=== PATIENT | female | born 1995 | race Caucasian/White ===

== ENCOUNTER 2016-12-04 00:08 | Emergency (ER) | payer MEDICAID ==
[2016-12-04 01:01] LABS: BASOPHIL % 0.5 % (0-2); PLATELET COUNT 376 x10^3mcL (130-400); RED CELL DISTRIBUTION WIDTH 13.9 % (11.5-14.5)
[2016-12-04 01:19] LABS: CARBON DIOXIDE 27.2 mmol/L (21-32); CHLORIDE SERUM 101 mmol/L (98-107); CREATININE SERUM 0.5 mg/dL (0.6-1.0); GFR1 > 60 mL/min; GLUCOSE SERUM 94 mg/dL (74-106); POTASSIUM SERUM 3.7 mmol/L (3.5-5.1); SODIUM SERUM 139 mmol/L (136-145)
[2016-12-04 01:24] LABS: ALBUMIN 3.8 g/dL (3.4-5.0); ALKALINE PHOSPHATASE 80 U/L (46-116); ALT/SGPT 35 U/L (14-59); AMYLASE 69 U/L (25-115); AST/SGOT 29 U/L (15-37); BILIRUBIN TOTAL 0.5 mg/dL (0.20-1.00); LIPASE 146 IU/L (73-393); TOTAL PROTEIN, SERUM 7.5 g/dL (6.4-8.2)
[2016-12-04 02:40] VITALS: BP 130/90
== END 2016-12-04 02:40 | disposition home or self-care (01) ==
LOC: ED 00:08
PROVIDERS: Emergency Medicine
DX: R10.13 Epigastric pain (principal); R11.0 Nausea
CPT/HCPCS: 36415; 83880; Q0092; Q0162

== ENCOUNTER 2016-12-29 01:03 | Emergency (ER) | payer OTHER, MEDICAID ==
[2016-12-29 04:23] VITALS: BP 134/98
== END 2016-12-29 04:23 | disposition left against medical advice (07) ==
LOC: ED 01:03
DX: Z53.21 Procedure and treatment not carried out due to patient leaving prior to being seen by health care provider (principal)